=== PATIENT | male | born 1965 | race African-American/Black ===

== ENCOUNTER 2024-09-01 20:09 | Inpatient (IN) ==
--- NOTE | 2024-09-01 20:39 | Emergency Department Note ---
History of Present Illness General Chief complaint: Infection Stated complaint: ABSCESS ON CHIN X5 DAYS Time Seen by Provider: 09/01/24 20:18 History of Present Illness Maximum Pain Intensity: 10 This is a 58-year-old male that presents to the emergency department via EMS from [facility] for evaluation of facial infection to the chin region. The patient notes that for the past 5 days if not longer, he has been experiencing discomfort to the chin region favoring the left side. No known trauma or injury. He denies any fevers but does note chills. He notes it is painful now to swallow. The patient denies any known drug allergies. He does have a history of heroin abuse, currently completing detox and now at [facility] for rehab. The patient notes his tetanus vaccine is up-to-date. He states that the chin began to spontaneously drain today. Patient notes he is otherwise healthy and denies any pertinent past medical history, surgeries or allergies. Home Medications Medication Instructions Recorded Confirmed Type buprenorphine 8 mg-naloxone 2 mg 1 film buccal DAILY 09/02/24 09/02/24 History sublingual film (Suboxone) Allergies Allergy/AdvReac Type Severity Reaction Status Date / Time No Known Allergies Allergy Unverified 09/02/24 01:55 Past Med/Surg History Problem List (Updated 09/02/24 @ 01:55 by Gunner Russell PA-C) Cellulitis and abscess of face (Acute) Social History Smoking Status: Current every day smoker Tobacco Type: Cigarettes Preferred Language: Welsh Feels Safe at Home: Yes Review of Systems A total of 10 systems reviewed and were otherwise negative Physical Exam Vital Signs Vital Signs - 24 hr 09/01/24 20:20 09/01/24 22:25 09/01/24 23:00 Temperature 37.3 C 37.9 C H Temperature Source Oral Oral Pulse Rate 85 Pulse Rate [Finger] 89 90 Respiratory Rate 20 20 16 Respiratory Effort / Characteristics Non-Labored Spontaneous Respiratory Depth Normal Respiratory Pattern Regular Blood Pressure 175/75 H Blood Pressure [Right Arm] 170/79 H 158/75 H Blood Pressure Mean 108 Blood Pressure Mean [Right Arm] 109 102 Blood Pressure Position [Right Arm] Lying Pulse Oximetry 97 97 95 Oxygen Delivery Method Room Air Room Air Room Air Sepsis Recent Fever Within 48 Hours No Sepsis New/Unexplained Change in Mental Status No Sepsis Action Taken by Nursing No Action Required VITAL SIGNS - Vital signs and nursing notes were reviewed. Stable and afebrile. GENERAL -58-year-old male appearing his stated age who is in no acute distress. Communicates well with provider and answers questions appropriately. SKIN - Without rashes. No meningeal or petechial rash. HEAD - NC/AT. EYES - PERRL with EOMI bilaterally. Sclera anicteric. EARS - No deformities of external structures noted on gross examination bilaterally. No pain elicited with palpation of the tragus bilaterally. External auditory canals without discharge or otorrhea. Tympanic membranes pearly buchanan without retraction or bulging. No fluid or purulent material visualized behind the TM. Handle of malleus, umbo, cone of light, pars tensa/flaccid all easily visualized. NOSE - Midline and without cyanosis. No epistaxis or purulent drainage noted. Septum midline without deviation or septal hematoma noted. MOUTH/OROPHARYNX - Without perioral cyanosis. Buccal mucosa pink and moist and without leukoplakia. Tongue midline with equal elevation of palate bilaterally. No tonsillar hypertrophy, erythema, or exudates noted. Fair dentition noted. NECK - Neck with FROM. Overlying the anterior mandible/chin region favoring the left side there is a large amount of soft tissue edema, erythema with central opening and a small amount of purulence. Region is exquisitely tender to palpation. Tenderness tracks inferiorly into the anterior lateral neck on the left side. Edema also tracks to the inferior aspect of the left lower lip. Bilateral anterior cervical lymphadenopathy noted. No nuchal rigidity. LUNGS - CTA CARDIAC - RRR EXTREMITIES - No clubbing or peripheral cyanosis. +5/5 strength noted in UE/LE bilaterally. NEUROLOGIC - Cranial nerves II through XII grossly intact. PSYCH -alert, oriented and pleasant on exam Course Administered Medications Discontinued Medications Ampicillin Sodium/Sulbactam Sodium (Unasyn) 3,000 mg in 100 mls @ 200 mls/hr IV NOW STA Stop: 09/01/24 21:10 Last Infusion: 09/01/24 23:15 Dose: Infused Documented By: Admin: 09/01/24 22:26 Dose: 200 mls/hr Documented By: TALHA Vancomycin HCl 1,500 mg/ (Sodium Chloride) 530 mls @ 200 mls/hr IV NOW ONE Stop: 09/01/24 23:19 Last Infusion: 09/02/24 00:00 Dose: 200 mls/hr Documented By: Infusion: 09/01/24 23:30 Dose: 0 mls/hr Documented By: Admin: 09/01/24 23:23 Dose: 200 mls/hr Documented By: KALEB Sodium Chloride (Nss) 500 mls @ 125 mls/hr IV .Q4H CHANDRIKA Stop: 09/02/24 00:44 Last Admin: 09/01/24 22:27 Dose: 125 mls/hr Documented By: TALHA Ioversol (Optiray 320 100ml) 90 ml IV ONCE ONE Stop: 09/01/24 22:36 Last Admin: 09/01/24 22:35 Dose: 90 ml Documented By: LAWANDA Ketorolac Tromethamine (Ketorolac Tromethamine 15 Mg/Ml Vial) 10 mg IV NOW ONE Stop: 09/01/24 20:42 Last Admin: 09/01/24 22:29 Dose: 10 mg Documented By: TALHA Medical Decision Making Laboratory Data 09/01/24 22:10 09/01/24 22:10 Lab Results 09/01/24 09/01/24 Range/Units 22:10 22:24 WBC 10.21 (4.8-10.8) K/ul RBC 3.79 L (4.70-6.10) M/uL Hgb 11.7 L (14.0-18.0) g/dl POC Hgb 11.9 L (14.0-18.0) g/dl Hct 34.8 L (42.0-52.0) % POC Hct 35 L (42-52) % MCV 91.8 (80.0-100.0) fL MCH 30.9 (25.0-34.0) pg MCHC 33.6 (32.0-36.0) g/dL RDW Std Deviation 46.2 (36.4-46.3) fL RDW Coeff of Lucille 13.6 (11.5-14.5) % Plt Count 283 (130-400) K/uL MPV 9.6 (9.4-12.4) fL Immature Gran % (Auto) 0.4 % Neut % (Auto) 71.5 % Lymph % (Auto) 13.2 % [place] % (Auto) 10.4 % Eos % (Auto) 4.3 % Baso % (Auto) 0.2 % Neut # (Auto) 7.30 H (1.40-6.50) K/uL Lymph # (Auto) 1.35 (1.20-3.40) K/uL [place] # (Auto) 1.06 H (0.11-0.59) K/uL Eos # (Auto) 0.44 (0.00-0.50) K/uL Baso # (Auto) 0.02 (0.00-0.20) K/uL Immature Gran # (Auto) 0.04 (0.01-0.20) K/uL POC Sodium 138 (135-144) mmol/L Sodium 137 (136-145) mmol/L POC Potassium 3.7 (3.3-5.0) mmol/L Potassium 3.7 (3.5-5.1) mmol/L POC Chloride 100 L (101-112) mmol/L Chloride 101 (98-107) mmol/L Carbon Dioxide 31 (21-32) mmol/L POC Total CO2 29 (24-31) mmol/L Anion Gap 5 (3-11) POC Anion Gap 14.0 L (16-25) mmol/L POC BUN 11 (7-18) mg/dl BUN 12 (6-23) mg/dl Creatinine 0.74 (0.6-1.4) mg/dl POC Creatinine 0.8 (0.6-1.3) mg/dl Est Cr Clr Drug Dosing 113.7 ml/min eGFR 105.68 BUN/Creatinine Ratio 16.2 (10-20) Glucose 97 (70-99(Fasting)) mg/dl POC Glucose (other) 98 (70-99) mg/dl Lactate 0.8 (0.4-2.0) mmol/L Calcium 8.6 (8.6-10.3) mg/dl POC Ioniz Calcium Gianna 1.14 (1.12-1.32) mmol/l Total Bilirubin 0.4 (0.2-1.0) mg/dl AST 11 L (13-39) U/L ALT 7 (7-52) U/L Alkaline Phosphatase 45 (34-104) U/L Total Protein 6.7 (6.0-8.3) gm/dl Albumin 3.7 (3.4-5.0) gm/dl Globulin 3.0 (2.5-4.0) gm/dl Albumin/Globulin Ratio 1.2 (0.9-2) Procalcitonin < 0.02 (0-0.5) ng/ml Imaging Data Radiologist's Impression: Soft Tissue Neck CT 09/01/24 20:41 Exam(s): CT NECK With Contrast IV Amt: 90 ml optiray 320 EXAM: CT Neck With Intravenous Contrast CLINICAL HISTORY: Cellulitis TECHNIQUE: Axial computed tomography images of the neck with intravenous contrast. CTDI is 20 mGy and DLP is 534 mGy-cm. Automated exposure control was utilized for the study. A dose lowering technique was utilized adhering to the principles of ALARA. CONTRAST: Patient received 90 ml optiray 320 of IV contrast COMPARISON: No relevant prior studies available. FINDINGS: Oropharynx: Multiple periapical abscesses are noted of the residual maxillary teeth. No significant tonsillar enlargement. No peritonsillar abscess. Hypopharynx: Unremarkable. Larynx: Unremarkable. Normal epiglottis. Trachea: Unremarkable. Retropharyngeal space: Unremarkable. Submandibular/parotid glands: Unremarkable. Glands are normal in size. Thyroid: Unremarkable. No enlarged or calcified nodules. Bones/joints: There are degenerative changes of the spine. No acute fracture. Soft tissues: Marked subcutaneous edema of the left cheek and chin with a 14 x 19 x 15 mm abscess just deep to the skin of the left chin. Vasculature: Mild atherosclerosis. Lymph nodes: Unremarkable. No lymphadenopathy. Lung apices: Paraseptal emphysema. IMPRESSION: 1. Marked subcutaneous edema of the left cheek and chin with a 14 x 19 x 15 mm abscess just deep to the skin of the left chin. 2. Multiple periapical abscesses are noted of the residual maxillary teeth. 3. Paraseptal emphysema. Electronically signed by: Sandi Nieto MD 09/01/24 23:31 PM MDM Narrative Patient was seen and evaluated as above in room D03b. Review was performed of triage nursing notes and vital signs. I did review the accompanying documentation from [facility]. The patient does appear to have facial cellulitis with likely abscess. However, the patient does endorse chills and although initial temperature was normal, recheck was borderline febrile at 37.9. Patient has been on doxycycline it appears per review of the documentation. Lab reveal no leukocytosis. There is minor anemia with hemoglobin of 11.7. Metabolic panel is without emergent process. No evidence of kidney or liver failure. Lactate normal. Pro-Praful normal. A CT scan of the neck soft tissues was performed. Radiologist commented on marked subcutaneous edema of the left cheek and chin with a 14 x 19 x 15 mm abscess just deep to the skin of the left chin. There was also comment of multiple periapical abscesses of the residual maxillary teeth. Paraseptal emphysema also noted. No respiratory complaints at this time. With today's findings, I do believe that hospitalization is warranted. Will proceed with IV antibiotics. The patient may require I&D during his hospitalization but I do not believe that bedside I&D at this time would be in the patient's best interest, rather do recommend IV antibiotics and hospitalization and trending clinical course. Patient did ask for some food and did eat just after midnight, but did inform the patient that after finishing the food we will recommend n.p.o. status throughout the night depending on clinical course. I discussed case with the hospitalist service. Hospitalist will consult OMFS. I do not believe that the patient requires emergent bedside I&D at this time, rather believe he would benefit from IV antibiotics and further assessment later in the stay. Please refer to further documentation regarding his stay. Patient was amenable to admission but expressed concern that he will lose his spot at [facility]. I did work with our case management service and Rebecca did call to [facility] and was able to confirm after discharge from here patient will be able to return to [facility] to continue the program. Please see distributed generation project manager note in the EMR. GCS: 15 In the evaluation and treatment of this patient the following differential diagnoses were entertained: Luis Daniel's angina, dental infection, chin abscess, deep space infection, among others Impression & Plan Cellulitis and abscess of face Discharge Plan Visit Data Chief Complaint: Infection Stated Complaint: ABSCESS ON CHIN X5 DAYS ED Provider: Jean Sharma ED Midlevel Provider: Gunner Russell Discharge Problem: Cellulitis and abscess of face Patient Disposition: Admitted As Inpatient Condition: Good Discharge Instructions Interventions: ED Discharge Assessment Last Done: 09/02/24 01:22
[2024-09-01] MEDS ORDERED: VANCOMYCIN CONSULT ACTIVE PRN (20:41)
[2024-09-01] MEDS: AMPICILLIN/SULBACTAM SOD 3,000 MG/100 ML BAG IV STA (22:26)
[2024-09-01] MEDS: SODIUM CHLORIDE 0.9% 500 ML IV SCH (22:27)
[2024-09-01] MEDS: KETOROLAC TROMETHAMINE 15 MG/ML VIAL IV ONE (22:29)
[2024-09-01] MEDS: OPTIRAY 320 100ml IV ONE (22:35)
[2024-09-01 22:45] LABS: Basophils # (auto) 0.02 K/uL (0.00-0.20); Basophils % (auto) 0.2 %; Eosinophils # (auto) 0.44 K/uL (0.00-0.50); Eosinophils % (auto) 4.3 %; Hematocrit (blood only) 34.8 % (42.0-52.0); Hemoglobin 11.7 g/dl (14.0-18.0); Immature Granulocytes # (auto) 0.04 K/uL (0.01-0.20); Immature Granulocytes % (auto) 0.4 %; Lymphocytes # (auto) 1.35 K/uL (1.20-3.40); Lymphocytes % (auto) 13.2 %; Mean Corpuscular Hemoglobin 30.9 pg (25.0-34.0); Mean Corpuscular Hgb Conc 33.6 g/dL (32.0-36.0); Mean Corpuscular Volume 91.8 fL (80.0-100.0); Mean Platelet Volume 9.6 fL (9.4-12.4); Monocytes # (auto) 1.06 K/uL (0.11-0.59); Monocytes % (auto) 10.4 %; Neutrophils % (auto) 71.5 %; Platelet Count 283 K/uL (130-400); RDW Coefficient of Variation 13.6 % (11.5-14.5); RDW Standard Deviation 46.2 fL (36.4-46.3); Red Blood Count 3.79 M/uL (4.70-6.10); White Blood Count 10.21 K/ul (4.8-10.8)
[2024-09-01 22:54] LABS: Albumin Globulin Ratio 1.2 (0.9-2); Albumin Level 3.7 gm/dl (3.4-5.0); BUN Creatinine Ratio 16.2 (10-20); Bilirubin,Total 0.4 mg/dl (0.2-1.0); Calcium 8.6 mg/dl (8.6-10.3); Creatinine Clr Calc Pharmacy 113.7 ml/min; Potassium 3.7 mmol/L (3.5-5.1); Total Protein 6.7 gm/dl (6.0-8.3)
[2024-09-01] MEDS: VANCOMYCIN HCL 1,500 MG in SODIUM CHLORIDE 0.9% 500 ML IV ONE (23:23)
--- NOTE | 2024-09-01 23:32 | CT Scan Report ---
Exam(s): CT NECK With Contrast IV Amt: 90 ml optiray 320 EXAM: CT Neck With Intravenous Contrast CLINICAL HISTORY: Cellulitis TECHNIQUE: Axial computed tomography images of the neck with intravenous contrast. CTDI is 20 mGy and DLP is 534 mGy-cm. Automated exposure control was utilized for the study. A dose lowering technique was utilized adhering to the principles of ALARA. CONTRAST: Patient received 90 ml optiray 320 of IV contrast COMPARISON: No relevant prior studies available. FINDINGS: Oropharynx: Multiple periapical abscesses are noted of the residual maxillary teeth. No significant tonsillar enlargement. No peritonsillar abscess. Hypopharynx: Unremarkable. Larynx: Unremarkable. Normal epiglottis. Trachea: Unremarkable. Retropharyngeal space: Unremarkable. Submandibular/parotid glands: Unremarkable. Glands are normal in size. Thyroid: Unremarkable. No enlarged or calcified nodules. Bones/joints: There are degenerative changes of the spine. No acute fracture. Soft tissues: Marked subcutaneous edema of the left cheek and chin with a 14 x 19 x 15 mm abscess just deep to the skin of the left chin. Vasculature: Mild atherosclerosis. Lymph nodes: Unremarkable. No lymphadenopathy. Lung apices: Paraseptal emphysema. IMPRESSION: 1. Marked subcutaneous edema of the left cheek and chin with a 14 x 19 x 15 mm abscess just deep to the skin of the left chin. 2. Multiple periapical abscesses are noted of the residual maxillary teeth. 3. Paraseptal emphysema. Electronically signed by: Sandi Nieto MD 09/01/24 23:31 PM
[2024-09-01 23:55] LABS: iSTAT Creatinine 0.8 mg/dl (0.6-1.3); iSTAT Hemoglobin 11.9 g/dl (14.0-18.0); iSTAT Ionized Calcium 1.14 mmol/l (1.12-1.32); iSTAT Potassium 3.7 mmol/L (3.3-5.0)
[2024-09-02] MEDS ORDERED: ACETAMINOPHEN 325 MG TAB PO PRN (01:37)
[2024-09-02] MEDS: Patient's ALLERGY Info needs ENTERED STA (01:55)
[2024-09-02] MEDS: AMPICILLIN/SULBACTAM SOD 3,000 MG/100 ML BAG IV SCH (04:29)
[2024-09-02] MEDS: VANCOMYCIN HCL 1,500 MG in SODIUM CHLORIDE 0.9% 500 ML IV SCH (05:06)
[2024-09-02] MEDS: KETOROLAC TROMETHAMINE 15 MG/ML VIAL IV PRN (05:56)
--- NOTE | 2024-09-02 06:47 | History & Physical Report ---
Date of Service September 02, 2024 Assessment & Plan (1) Cellulitis and abscess of face: Plan: 58-year-old male seems no significant past medical history was sent in from [facility] for infection in the chin region. Patient went to [facility] rehab yesterday for cocaine abuse and was placed on Suboxone. Patient states have this infection For last 5 days. Chin is swollen. And small area of drainage seen. Has pain in that area. Patient is afebrile. Denies headache. Denies chest pain. Denies shortness of. No nausea. No abdominal pain. Hemodynamics are okay. Patient is somewhat noncooperative and annoyed with the questions. Cellulitis and abscess of face CT neck with IV contrast:. Marked subcutaneous edema of the left cheek and chin with a 14 x 19 x 15 mm abscess just deep to the skin of the left chin. 2. Multiple periapical abscesses are noted of the residual maxillary teeth. 3. Paraseptal emphysema ER started on Unasyn and Vanco which will continued N.p.o., IV fluids, IV Toradol as needed . Oral maxillofacial surgery consult Close monitor Cocaine abuse [facility] and was placed on Suboxone which will be continued. Discharged back to [facility] when stable DVT prophylaxis SCDs for now Disposition Medical floor Full code. History of Present Illness Chief Complaint: Chin abscess Primary Care Provider: Ari Henderson 58-year-old male seems no significant past medical history was sent in from [facility] for infection in the chin region. Patient went to [facility] rehab yesterday for cocaine abuse and was placed on Suboxone. Patient states having this infection for last 5 days. Chin is swollen. And small area of drainage seen. Has pain in that area. Patient is afebrile. Denies headache. Denies chest pain. Denies shortness of breath. No nausea. No abdominal pain. Hemodynamics are okay. Patient is somewhat noncooperative and annoyed with the questions. Past medical history and surgical history. Could not get complete history. Social history. Smoking. Using cocaine. Family history could not get family history Allergies Allergy/AdvReac Type Severity Reaction Status Date / Time No Known Allergies Allergy Unverified 09/02/24 01:55 Home Medications Medication Instructions Recorded Confirmed Type buprenorphine 8 mg-naloxone 2 mg 1 film buccal DAILY 09/02/24 09/02/24 History sublingual film (Suboxone) Past Med/Surg History Problem List (Updated 09/02/24 @ 01:55 by Gunner Russell PA-C) Cellulitis and abscess of face (Acute) Social History Smoking Status: Current every day smoker Tobacco Type: Cigarettes Cigarettes Per Day: 1/2 pack a day.; Hx Alcohol Use: No Hx Substance Use: Yes Last Used Substance: Days (ago) Last Used Substance Other:: 7 days ago. Preferred Language: Latvian Communication Ability: Effective Kettle Operator Required: No Beliefs That Will Affect Care: None Current Living Situation: Other Current Living Situation Comment: currently at [facility] Feels Safe at Home: Yes Assistive Devices: None Review of Systems Review of Systems: Other Non coperative Physical Exam Physical Exam: General- Not in distress Head- left side of chin is swollen and drainage seen Eyes- PERRL,. Neck- supple, no JVD. Lungs- clear to auscultation no wheezing or crackles Heart- regular rhythm; no murmur, no gallop. Abdomen- normal bowel sounds, soft, nontender, no distension Extremities- moves extremities Neuro- alert, oriented PERRL, no facial palsy; no dysarthria; moves extremities Results & Data Results & Data Vital Signs (Past 12 Hours) Vital Signs Temp Pulse Pulse Resp BP BP Pulse Ox 09/01/24 23:00 90 16 158/75 H 95 09/01/24 22:25 37.9 C H 89 20 170/79 H 97 09/01/24 20:20 37.3 C 85 20 175/75 H 97 O2 Del Method 09/01/24 23:00 Room Air 09/01/24 22:25 Room Air 09/01/24 20:20 Room Air Diagnostic Findings Laboratory Results WBC 10.21 K/ul (4.8-10.8) 09/01/24 22:10 RBC 3.79 M/uL (4.70-6.10) L 09/01/24 22:10 Hgb 11.7 g/dl (14.0-18.0) L 09/01/24 22:10 POC Hgb 11.9 g/dl (14.0-18.0) L 09/01/24 22:24 Hct 34.8 % (42.0-52.0) L 09/01/24 22:10 POC Hct 35 % (42-52) L 09/01/24 22:24 MCV 91.8 fL (80.0-100.0) 09/01/24 22:10 MCH 30.9 pg (25.0-34.0) 09/01/24 22:10 MCHC 33.6 g/dL (32.0-36.0) 09/01/24 22:10 RDW Std Deviation 46.2 fL (36.4-46.3) 09/01/24 22:10 RDW Coeff of Lucille 13.6 % (11.5-14.5) 09/01/24 22:10 Plt Count 283 K/uL (130-400) 09/01/24 22:10 MPV 9.6 fL (9.4-12.4) 09/01/24 22:10 Immature Gran % (Auto) 0.4 % 09/01/24 22:10 Neut % (Auto) 71.5 % 09/01/24 22:10 Lymph % (Auto) 13.2 % 09/01/24 22:10 [place] % (Auto) 10.4 % 09/01/24 22:10 Eos % (Auto) 4.3 % 09/01/24 22:10 Baso % (Auto) 0.2 % 09/01/24 22:10 Neut # (Auto) 7.30 K/uL (1.40-6.50) H 09/01/24 22:10 Lymph # (Auto) 1.35 K/uL (1.20-3.40) 09/01/24 22:10 [place] # (Auto) 1.06 K/uL (0.11-0.59) H 09/01/24 22:10 Eos # (Auto) 0.44 K/uL (0.00-0.50) 09/01/24 22:10 Baso # (Auto) 0.02 K/uL (0.00-0.20) 09/01/24 22:10 Immature Gran # (Auto) 0.04 K/uL (0.01-0.20) 09/01/24 22:10 POC Sodium 138 mmol/L (135-144) 09/01/24 22:24 Sodium 137 mmol/L (136-145) 09/01/24 22:10 POC Potassium 3.7 mmol/L (3.3-5.0) 09/01/24 22:24 Potassium 3.7 mmol/L (3.5-5.1) 09/01/24 22:10 POC Chloride 100 mmol/L (101-112) L 09/01/24 22:24 Chloride 101 mmol/L (98-107) 09/01/24 22:10 Carbon Dioxide 31 mmol/L (21-32) 09/01/24 22:10 POC Total CO2 29 mmol/L (24-31) 09/01/24 22:24 Anion Gap 5 (3-11) 09/01/24 22:10 POC Anion Gap 14.0 mmol/L (16-25) L 09/01/24 22:24 POC BUN 11 mg/dl (7-18) 09/01/24 22:24 BUN 12 mg/dl (6-23) 09/01/24 22:10 Creatinine 0.74 mg/dl (0.6-1.4) 09/01/24 22:10 POC Creatinine 0.8 mg/dl (0.6-1.3) 09/01/24 22:24 Est Cr Clr Drug Dosing 113.7 ml/min 09/01/24 22:10 eGFR 105.68 09/01/24 22:10 BUN/Creatinine Ratio 16.2 (10-20) 09/01/24 22:10 Glucose 97 mg/dl (70-99(Fasting)) 09/01/24 22:10 POC Glucose (other) 98 mg/dl (70-99) 09/01/24 22:24 Lactate 0.8 mmol/L (0.4-2.0) 09/01/24 22:10 Calcium 8.6 mg/dl (8.6-10.3) 09/01/24 22:10 POC Ioniz Calcium Gianna 1.14 mmol/l (1.12-1.32) 09/01/24 22:24 Total Bilirubin 0.4 mg/dl (0.2-1.0) 09/01/24 22:10 AST 11 U/L (13-39) L 09/01/24 22:10 ALT 7 U/L (7-52) 09/01/24 22:10 Alkaline Phosphatase 45 U/L (34-104) 09/01/24 22:10 Total Protein 6.7 gm/dl (6.0-8.3) 09/01/24 22:10 Albumin 3.7 gm/dl (3.4-5.0) 09/01/24 22:10 Globulin 3.0 gm/dl (2.5-4.0) 09/01/24 22:10 Albumin/Globulin Ratio 1.2 (0.9-2) 09/01/24 22:10 Procalcitonin < 0.02 ng/ml (0-0.5) 09/01/24 22:10 Impressions Soft Tissue Neck CT 09/01/24 20:41 Exam(s): CT NECK With Contrast IV Amt: 90 ml optiray 320 EXAM: CT Neck With Intravenous Contrast CLINICAL HISTORY: Cellulitis TECHNIQUE: Axial computed tomography images of the neck with intravenous contrast. CTDI is 20 mGy and DLP is 534 mGy-cm. Automated exposure control was utilized for the study. A dose lowering technique was utilized adhering to the principles of ALARA. CONTRAST: Patient received 90 ml optiray 320 of IV contrast COMPARISON: No relevant prior studies available. FINDINGS: Oropharynx: Multiple periapical abscesses are noted of the residual maxillary teeth. No significant tonsillar enlargement. No peritonsillar abscess. Hypopharynx: Unremarkable. Larynx: Unremarkable. Normal epiglottis. Trachea: Unremarkable. Retropharyngeal space: Unremarkable. Submandibular/parotid glands: Unremarkable. Glands are normal in size. Thyroid: Unremarkable. No enlarged or calcified nodules. Bones/joints: There are degenerative changes of the spine. No acute fracture. Soft tissues: Marked subcutaneous edema of the left cheek and chin with a 14 x 19 x 15 mm abscess just deep to the skin of the left chin. Vasculature: Mild atherosclerosis. Lymph nodes: Unremarkable. No lymphadenopathy. Lung apices: Paraseptal emphysema. IMPRESSION: 1. Marked subcutaneous edema of the left cheek and chin with a 14 x 19 x 15 mm abscess just deep to the skin of the left chin. 2. Multiple periapical abscesses are noted of the residual maxillary teeth. 3. Paraseptal emphysema. Electronically signed by: Sandi Nieto MD 09/01/24 23:31 PM Code Status & VTE Plan VTE Prophylaxis Plan VTE Prophylaxis will be ordered: Yes
[2024-09-02] MEDS: BUPRENORPHINE/NALOXONE 8/2 MG TAB SL SCH (08:03)
--- NOTE | 2024-09-02 09:20 | Pharmacy Report ---
Pharmacy PK ABX Note - Date of Service September 02, 2024 - Assessment and Plan Assessment 58 year old M receiving vancomycin for treatment of facial cellulitis, facial and blood cultures are pending. Plan Vancomycin * Loading dose: 1500 mg IV x 1 * Maintenance dose: 1500 mg IV every 12 hours * Regimen is predicted to achieve target AUC/JOSE G of 400-600 mg/L.hr * Trough Random level ordered for: 09/03/24 Pharmacy will continue to follow and will adjust dose/frequency as necessary. Thank you. Pharmacy has transitioned to AUC monitoring for vancomycin. AUC/JOSE G is the preferred PK/PD target and is associated with decreased risk of nephrotoxicity c ompared to traditional trough targets.
--- NOTE | 2024-09-02 10:02 | Oral/Maxillofacial Consult ---
Date of Consultation September 02, 2024 I was asked to see Mr Yara regarding a left chin infection which developed of unknown origin. He feels and I agree that this stated as a ingrown hair of the left chin. He has no lower teeth except for an infected retained lower left molar roots. I doubt that this infection was caused by this retained tooth root but once I examine him I will know better. The bone does not show any evidence of osteomyelitics to account for the infection. It is now possible that this could be the result of an infected dermoid cyst or small pimple. Nevertheless with the amount of fluid collection an I&D will most likely be needed. I will also remove the infected lower left infected roots to prevent ongoing jaw pain and swelling # 18 area I evaluated Abdulaziz this afternoon and decided that an I&D tomorrow is indicated to drain and open up the large infected lesion. IV antibiotics presently, heat compress and I&D in AM is his best option. He was not happy with my suggestions but after he settled down he understands the need for the I&D. I told him with out the drainage the infection WILL get worse. He agreed to the IV therapy and I&D tomorrow Acute Cellulitis and abscess of face left chin area secondary to infected ingrown hair Plan I&D tomorrow NPO midnight 58-year-old male seems no significant past medical history was sent in from [facility] for infection in the chin region. Patient went to [facility] rehab yesterday for cocaine abuse and was placed on Suboxone. Patient states have this infection For last 5 days. Chin is swollen. And small area of drainage seen. Has pain in that area. Patient is afebrile. Denies headache. Denies chest pain. Denies shortness of. No nausea. No abdominal pain. Hemodynamics are okay. Patient is somewhat noncooperative and annoyed with the questions. Cocaine abuse [facility] and was placed on Suboxone which will be continued. Discharged back to [facility] when stable EXAM: CT Neck With Intravenous Contrast CLINICAL HISTORY: Cellulitis FINDINGS: Oropharynx: Multiple periapical abscesses are noted of the residual maxillary teeth. No significant tonsillar enlargement. No peritonsillar abscess. Hypopharynx: Unremarkable. Larynx: Unremarkable. Normal epiglottis. Trachea: Unremarkable. Retropharyngeal space: Unremarkable. Submandibular/parotid glands: Unremarkable. Glands are normal in size. Thyroid: Unremarkable. No enlarged or calcified nodules. Bones/joints: There are degenerative changes of the spine. No acute fracture. Soft tissues: Marked subcutaneous edema of the left cheek and chin with a 14 x 19 x 15 mm abscess just deep to the skin of the left chin. Vasculature: Mild atherosclerosis. Lymph nodes: Unremarkable. No lymphadenopathy. Lung apices: Paraseptal emphysema. IMPRESSION: 1. Marked subcutaneous edema of the left cheek and chin with a 14 x 19 x 15 mm abscess just deep to the skin of the left chin. 2. Multiple periapical abscesses are noted of the residual maxillary teeth. 3. Paraseptal emphysema. Assessment & Plan (1) Cellulitis and abscess of face: (2) Abscess of chin: (3) Ingrown hair: (4) Infected tooth: History of Present Illness Attending Physician: Jonah Delvalle MD Allergies Allergy/AdvReac Type Severity Reaction Status Date / Time No Known Allergies Allergy Unverified 09/02/24 01:55 Home Medications Medication Instructions Recorded Confirmed Type buprenorphine 8 mg-naloxone 2 mg 1 film buccal DAILY 09/02/24 09/02/24 History sublingual film (Suboxone) Patient History Social History Smoking Status: Current every day smoker Tobacco Type: Cigarettes Cigarettes Per Day: 1/2 pack a day.; Hx Alcohol Use: No Hx Substance Use: Yes Last Used Substance: Days (ago) Last Used Substance Ot her:: 7 days ago. Preferred Language: Danish Communication Ability: Effective Technical Support Agent Required: No Beliefs That Will Affect Care: None Current Living Situation: Other Current Living Situation Comment: currently at [facility] D&A Feels Safe at Home: Yes Assistive Devices: None Results & Data Vital Signs (Past 12 Hours) Vital Signs Temp Pulse Resp BP Pulse Ox O2 Del Method 09/02/24 07:54 36.8 C 76 16 158/80 H 98 Room Air 09/02/24 01:49 147/70 H 09/02/24 01:38 37.1 C 88 16 179/64 H 97 Room Air 09/02/24 00:56 91 H 16 164/80 H 96 Room Air 09/01/24 23:00 90 16 158/75 H 95 Room Air 09/01/24 22:25 37.9 C H 89 20 170/79 H 97 Room Air PG Care Time/CCT Total # of Minutes Spent Total Time Spent with Patient: Total time spent is greater than 50% in coordination of care (as documented) at patient's floor/unit and/or counseling patient: Coding Level of Care Code 25499 OFFICE CONSULT LVL Diagnoses Cellulitis and abscess of face L03.211; L02.01 Abscess of chin L02.01 Ingrown hair L73.1 Infected tooth K04.7
--- NOTE | 2024-09-02 15:03 | Communication Note ---
Date of Service: September 02, 2024 Patient seen and examined at bedside. He was sitting on a chair outside the room; was anxious. I asked him to go inside the room which he complied with. He was very upset that he had not had surgery till now. He denies any pain or discomfort On physical examination Constitutional: Awake, alert oriented x 3. Appeared anxious HEENTleft side of the chin with swelling, draining with pus. Respiratory: Bilateral vesicular breath sound. Cardiovascular: RRR, no murmur, no edema Vessels: no JVD or carotid bruit Chest: normal inspection of chest Abdomen: normal bowel sounds, soft, nontender, no hepatosplenomegaly Musculoskeletal: no cyanosis or clubbing, extremities motor strength 5/5 Skin: no rashes, warm and dry normal turgor Neurologic: PERRL, EOMI, accommodation nl, no face palsy, no dysarthria CN's II- XI intact bilaterally and moves all extremities Assessment/plan (1) Cellulitis and abscess of face: 58-year-old male seems no significant past medical history was sent in from [facility] for infection in the chin region. Patient originally from [facility] as per him Cellulitis and abscess of face CT neck with IV contrast:. Marked subcutaneous edema of the left cheek and chin with a 14 x 19 x 15 mm abscess just deep to the skin of the left chin. 2. Multiple periapical abscesses are noted of the residual maxillary teeth. 3. Paraseptal emphysema Wound Gram stain is showing few WBC and few gram-positive cocci Continue on current antibiotics with vancomycin and Unasyn Oral surgery on board for possible I&D. Follow-up on wound culture. Please note the above document was generated using voice recognition software. It may contain grammatical, syntax or spelling errors. Any formal questions or concerns about the content, text or information contained within the body of this dictation should be directly addressed to the provider for clarification
[2024-09-03] MEDS: VANCOMYCIN LEVEL ONE (05:55)
[2024-09-03 06:00] LABS: Basophils # (auto) 0.01 K/uL (0.00-0.20); Basophils % (auto) 0.2 %; Eosinophils # (auto) 0.43 K/uL (0.00-0.50); Eosinophils % (auto) 7.1 %; Hematocrit (blood only) 33.4 % (42.0-52.0); Hemoglobin 11.4 g/dl (14.0-18.0); Immature Granulocytes # (auto) 0.02 K/uL (0.01-0.20); Immature Granulocytes % (auto) 0.3 %; Lymphocytes # (auto) 1.45 K/uL (1.20-3.40); Lymphocytes % (auto) 23.9 %; Mean Corpuscular Hemoglobin 30.9 pg (25.0-34.0); Mean Corpuscular Hgb Conc 34.1 g/dL (32.0-36.0); Mean Corpuscular Volume 90.5 fL (80.0-100.0); Mean Platelet Volume 8.9 fL (9.4-12.4); Monocytes # (auto) 0.73 K/uL (0.11-0.59); Neutrophils # (auto) 3.42 K/uL (1.40-6.50); Neutrophils % (auto) 56.5 %; Platelet Count 269 K/uL (130-400); RDW Coefficient of Variation 13.4 % (11.5-14.5); RDW Standard Deviation 44.5 fL (36.4-46.3); Red Blood Count 3.69 M/uL (4.70-6.10); White Blood Count 6.06 K/ul (4.8-10.8)
[2024-09-03] MEDS ORDERED: fentaNYL citrate PF 100 MCG/2 ML VIAL ONE (07:13)
[2024-09-03] MEDS ORDERED: MIDAZOLAM HCL 1 MG/ML 2ML VIAL ONE (07:13)
[2024-09-03] MEDS ORDERED: PROPOFOL IV EMULSION 10 MG/ML 20 ML VIAL IV ONE (07:13)
[2024-09-03] MEDS ORDERED: ROCURONIUM BROMIDE 10 MG/ML 5 ML VIAL IV ONE (07:13)
[2024-09-03] MEDS ORDERED: NEOSTIGMINE METHYLSULFATE 1 MG/ML 10ML VIAL ONE (07:13)
[2024-09-03] MEDS ORDERED: GLYCOPYRROLATE 0.2 MG/ML VIAL ONE (07:13)
[2024-09-03] MEDS ORDERED: ONDANSETRON INJ 2 MG/ML 2 ML VIAL ONE (07:13)
[2024-09-03] MEDS ORDERED: LIDOCAINE 2% 2 ML VIAL/AMP(20MG/ML) INFIL ONE (07:13)
[2024-09-03] MEDS ORDERED: DEXAMETHASONE SOD INJ 4 MG/ML VIAL ONE (07:13)
[2024-09-03] MEDS ORDERED: Nursing to Pharmacy Communication SCH ×2 (09:15→14:15)
[2024-09-03] MEDS: LR 15ML/HR IV SCH (09:23)
--- NOTE | 2024-09-03 09:40 | Hospitalist Progress Note ---
Date of Service September 03, 2024 Assessment & Plan (1) Cellulitis and abscess of face: Plan: 58-year-old male seems no significant past medical history was sent in from [facility] for infection in the chin region. Patient went to [facility] rehab yesterday for cocaine abuse and was placed on Suboxone. Patient states have this infection For last 5 days. Chin is swollen. And small area of drainage seen. Has pain in that area. Patient is afebrile. Denies headache. Denies chest pain. Denies shortness of. No nausea. No abdominal pain. Hemodynamics are okay. Patient is somewhat noncooperative and annoyed with the questions. Cellulitis and abscess of face CT neck with IV contrast:. Marked subcutaneous edema of the left cheek and chin with a 14 x 19 x 15 mm abscess just deep to the skin of the left chin. 2. Multiple periapical abscesses are noted of the residual maxillary teeth. 3. Paraseptal emphysema ER started on Unasyn and Vanco which will continued N.p.o., IV fluids, IV Toradol as needed . Oral maxillofacial surgery consult Close monitor Cocaine abuse Ad[facility] and was placed on Suboxone which will be continued. Discharged back to [facility] when stable DVT prophylaxis SCDs for now Disposition Medical floor Full code. Admission and Anticipated Discharge Date Admission Date: September 02, 2024 Physical Exam Physical Exam: General- Not in distress Head- left side of chin is swollen and drainage seen Eyes- PERRL,. Neck- supple, no JVD. Lungs- clear to auscultation no wheezing or crackles Heart- regular rhythm; no murmur, no gallop. Abdomen- normal bowel sounds, soft, nontender, no distension Extremities- moves extremities Neuro- alert, oriented PERRL, no facial palsy; no dysarthria; moves extremities Results & Data Results & Data Vital Signs (Past 12 Hours) Vital Signs Temp Pulse Resp BP Pulse Ox O2 Del Method 09/03/24 09:14 36.9 C 62 20 141/68 H 100 Room Air 09/03/24 08:02 36.7 C 61 16 151/83 H 98 Room Air
--- NOTE | 2024-09-03 09:43 | Anesthesiology Consultation ---
Date of Service September 03, 2024 Assessment & Plan (1) Encounter for pre-operative examination: Chart Review Chart Review: Acceptable Risk for Surgery History Surgery Operation Date: 09/03/24 10:00 Proposed Procedures p Incision and Drainage Left Chin - Haris Robison, DMD s Extraction Tooth #18 - Haris Robison DMD Height/Weight Height: 5 ft 10 in Weight: 78.3 kg Allergies Allergy/AdvReac Type Severity Reaction Status Date / Time No Known Allergies Allergy Unverified 09/02/24 01:55 Medications Home Medications Medication Instructions Recorded Confirmed Last Taken buprenorphine 8 mg-naloxone 2 mg 1 film buccal DAILY 09/02/24 09/02/24 Unknown sublingual film (Suboxone) Active Medications Generic Name Dose Route Start Last Admin Trade Name Freq PRN Reason Stop Dose Admin Buprenorphine/Naloxone 1 tab 09/02/24 09:00 09/03/24 08:56 Buprenorphine/Naloxone 8/2 Mg Tab SL 10/02/24 08:59 1 tab DAILY CHANDRIKA Administration Ampicillin Sodium/Sulbactam Sodium 3,000 mg in 100 mls @ 200 mls/hr 09/02/24 04:00 09/03/24 04:05 Unasyn IV 09/09/24 03:59 Infused Q6H CHANDRIKA Infusion Vancomycin HCl 1,500 mg/ 530 mls @ 200 mls/hr 09/02/24 06:00 09/03/24 08:53 Sodium Chloride IV 09/09/24 05:59 Infused Q12H CHANDRIKA Infusion Lactated Ringer's 1,000 mls @ 15 mls/hr 09/03/24 10:00 09/03/24 09:23 Lr IV 09/04/24 09:59 15 mls/hr .Q24H CHANDRIKA Administration Ketorolac Tromethamine 15 mg 09/02/24 01:37 09/03/24 03:26 Ketorolac Tromethamine 15 Mg/Ml Vial IV 09/07/24 01:36 15 mg Q6H PRN Administration Severe Pain (Scale 7, 8, 9,10) NPO Date Last Intake of Fluids: 09/02/24 Time Last Intake of Fluids: 23:55 Date Last Intake of Solids: 09/02/24 Time Last Intake of Solids: 23:55 Past Medical History Medical History (Updated 09/03/24 @ 09:43 by Earl Alexander MD) Smoker Cocaine abuse Past Surgical History Surgical History (Updated 09/03/24 @ 09:42 by Earl Alexander MD) History of hip surgery Social History Smoking Status: Current every day smoker Smoking cigarettes per day: 1/2 pack a day. Hx Alcohol Use: No Hx Substance Use: Yes substance use type: heroin Last Used Substance: Days (ago) Last Used Substance Other:: 7 days ago. Physical Exam Vital Signs Last Vital Signs Temp 36.9 C 09/03/24 09:14 Pulse 62 09/03/24 09:14 Resp 20 09/03/24 09:14 BP 141/68 H 09/03/24 09:14 Pulse Ox 100 09/03/24 09:14 O2 Del Method Room Air 09/03/24 09:14 Testing Laboratory Results 09/03/24 05:34 09/01/24 22:50 Gram Stain - Final Face Aerobic and Anaerobic Culture - Preliminary Staphylococcus aureus 09/01/24 22:10 Aerobic Blood Culture - Preliminary Blood No growth in Aerobic bottle after 24 hours. Anaerobic Blood Culture - Preliminary No growth in Anaerobic bottle after 24 hours. Laboratory Tests 09/01/24 22:10 Potassium 3.7 Creatinine 0.74
[2024-09-03] MEDS ORDERED: ONDANSETRON INJ 2 MG/ML 2 ML VIAL IV PRN (09:45)
[2024-09-03] MEDS ORDERED: ATROPINE SULFATE 0.1 MG/ML 10ML SYR IV PRN (09:45)
--- NOTE | 2024-09-03 10:17 | History & Physical Bridge Note ---
Date of Service September 03, 2024 History & Physical Bridge Note I have examined the patient, reviewed the History & Physical and in the interval since the performance of the History & Physical I have noted the following changes of clinical significance: no changes noted. OK for the planned I&D
[2024-09-03] MEDS: CHLORHEXIDINE GLUCONATE 0.12% 480 ML MT ONE (11:01)
[2024-09-03] MEDS ORDERED: SUGAMMADEX SODIUM 200 MG/2 ML VIAL IV ONE (11:06)
[2024-09-03] MEDS: BUPIVACAINE/EPINEPHRINE 0.5% 1:200,000 1.8 ML CARP ONE (11:10)
[2024-09-03 11:15] LABS: Calcium 8.5 mg/dl (8.6-10.3); Magnesium 1.9 mg/dl (1.7-2.4)
[2024-09-03 11:20] LABS: BUN Creatinine Ratio 16.7 (10-20); Creatinine Clr Calc Pharmacy 140.3 ml/min
--- NOTE | 2024-09-03 11:28 | Post Operative Brief Note ---
PG Immediate Post Op with CF Date of Surgery September 03, 2024 Pre & Post Diagnosis Operation Date: 09/03/24 10:00 Pre-Op Diagnosis: Left chin abscess Post-Op Diagnosis: Left chin abscess I identified the patient and participated in the time-out.: Yes Procedure Operation Date: 09/03/24 10:00 Actual Procedures p Incision and Drainage Left Chin(Left) - Haris Robison DMD s Extraction Tooth #18 - Haris Robison DMD Surgeon Haris Robison DMD Mold Yard Supervisor none Estimated Blood Loss 5 Findings Consistent with Post-Op Diagnosis infection, abscess,necrotic tissue, infected # 18 Specimens Specimen Description: culture#1 abscess left chin A. infected tissue and muscle left chin Anesthesia Type General Complications significant necrotic tissue and muscle which required debridement Disposition Accompanied Patient To Recovery: Yes
[2024-09-03] MEDS: fentaNYL citrate PF 100 MCG/2 ML VIAL IV PRN (11:30)
[2024-09-03] MEDS: KETOROLAC 30 MG/ML VIAL IV PRN (11:30)
[2024-09-03 12:18] VITALS: RESP 16
--- NOTE | 2024-09-03 12:25 | Pharmacy Report ---
Pharmacy PK ABX Note - Date of Service September 03, 2024 - Assessment and Plan Assessment 09/03: * Reviewed vancomycin level, predicting therapeutic AUC/JOSE G with low probability. Surface facial culture now growing S. Aureus, final identification and sensitivities pending. I&D and infected tooth removal today, OR cultures pending. Blood cultures NG x24 hours. Will adjust dosing regimen to [employer] preferred with a 92% probability of attaining a therapeutic level due to severity of infection. 09/02: 58 year old M receiving vancomycin for treatment of facial cellulitis, facial and blood cultures are pending. Plan Vancomycin * Loading dose: 1500 mg IV x 1 * Current maintenance dose: 1500 mg IV every 12 hours * Increase to vancomycin 1250mg IV Q8H * Regimen is predicted to achieve target AUC/JOSE G of 400-600 mg/L.hr * Trough level ordered for: 09/04/24 @ 0130 Pharmacy will continue to follow and will adjust dose/frequency as necessary. Thank you. Pharmacy has transitioned to AUC monitoring for vancomycin. AUC/JOSE G is the preferred PK/PD target and is associated with decreased risk of nephrotoxicity compared to traditional trough targets.
[2024-09-03 12:46] VITALS: TEMP 97.2
[2024-09-03] MEDS ORDERED: VANCOMYCIN HCL 1,250 MG in SODIUM CHLORIDE 0.9% 250 ML IV SCH (14:00)
[2024-09-03 14:03] VITALS: BP 161/63; PULSE 74; O2SAT 96
--- NOTE | 2024-09-03 14:31 | Discharge Summary ---
Date of Service September 03, 2024 Admission HPI Per Admitting Provider 58-year-old male seems no significant past medical history was sent in from [facility] for infection in the chin region. Patient went to [facility] rehab yesterday for cocaine abuse and was placed on Suboxone. Patient states having this infection for last 5 days. Chin is swollen. And small area of drainage seen. Has pain in that area. Patient is afebrile. Denies headache. Denies chest pain. Denies shortness of breath. No nausea. No abdominal pain. Hemodynamics are okay. Patient is somewhat noncooperative and annoyed with the questions. Past medical history and surgical history. Could not get complete history. Social history. Smoking. Using cocaine. Family history could not get family history Admission Exam Per Admitting Provider General- Not in distress Head- left side of chin is swollen and drainage seen Eyes- PERRL,. Neck- supple, no JVD. Lungs- clear to auscultation no wheezing or crackles Heart- regular rhythm; no murmur, no gallop. Abdomen- normal bowel sounds, soft, nontender, no distension Extremities- moves extremities Neuro- alert, oriented PERRL, no facial palsy; no dysarthria; moves extremities Principal Diagnosis Left skin abscess status post I&D Discharge Exam Constitutional: Alert oriented x 3; not in distress Head; dressing in place over the surgical site; no overlying soakage. Respiratory: Bilateral vesicular breath sound. Cardiovascular: RRR, no murmur, no edema Vessels: no JVD or carotid bruit Chest: normal inspection of chest Abdomen: normal bowel sounds, soft, nontender, no hepatosplenomegaly Musculoskeletal: no cyanosis or clubbing, extremities motor strength 5/5 Skin: no rashes, warm and dry normal turgor Neurologic: PERRL, EOMI, accommodation nl, no face palsy, no dysarthria CN's II- XI intact bilaterally and moves all extremities Psychiatric: A+Ox3, euthymic affect Discharge Data Allergies Allergy/AdvReac Type Severity Reaction Status Date / Time No Known Allergies Allergy Unverified 09/02/24 01:55 Consultations 09/01/24 23:56 ED Decision to Admit Stat 09/02/24 08:00 Consult Oromaxillofacial Surgery Routine Procedures Performed Operation Date: 09/03/24 10:00 Actual Procedures p Incision and Drainage Left Chin(Left) - Haris Robison DMD s Extraction Tooth #18 - Haris Robison DMD Ordered Studies 09/01/24 20:41 CT soft tissue neck w con Stat Hospital Course (1) Cellulitis and abscess of face: Plan 58-year-old male seems no significant past medical history was sent in from [facility] for infection in the chin region. CT head and neck on admission showed 14 x 19 x 15 mm abscess just deep to the skin of the left chin. Patient was admitted to medical floor; started on IV antibiotic and vancomycin. Oral surgery was consulted for comanagement and patient underwent I&D for abscess. Preliminary wound culture showed Staph aureus. Patient was discharged on Augmentin and doxycycline to be taken for next 7 days. Instruction was also placed for him to follow-up with oral surgeon after discharge. Please note the above document was generated using voice recognition software. It may contain grammatical, syntax or spelling errors. Any formal questions or concerns about the content, text or information contained within the body of this dictation should be directly addressed to the provider for clarification Total Time Total Time Spent Total Time Spent (In Minutes): 45 Total Time Includes: Examination of the Patient, Discharge Planning, Medication Reconciliation, Communication With Other Providers and Other Discharge Plan Discharge Items Patient Disposition: Drug & Alcohol Rehab Reason For Visit: LEFT CHIN ABSCESS Discharge Diagnosis: Left chin abscess status post I&D Condition on Discharge: Good Activity: Resume your previous activity Non-emergency contact: Primary Care Provider Call non-emergency contact if: you have any medication questions and your symptoms worsen Follow-up/Referrals: Ari Henderson [Primary Care Provider] - Diet: Regular Addtl Attending Provider Instructions: You were admitted to the hospital due to change in abscess/infection. You underwent I&D by Dr. Robison during the hospitalization. You are prescribed Augmentin and doxycycline to be taken twice daily for 7 days. Please follow-up with Dr. Robison in next 7 to 10 days. Please call [phone] to make appointment. Pending Studies at Discharge: No Stand-Alone Forms: My [facility] Skilled Items Patient informed of condition?: Yes DNR: No Discharge Level of Care: Other Communicable Disease: No Discharge Prognosis: Stable Lines: None Urinary Catheter: No Medications and DC Order Prescriptions: New acetaminophen 325 mg Tablet 650 mg PO Q4H PRN (Reason: fever or pain) Qty: 28 0RF amoxicillin-pot clavulanate 875-125 mg tablet 1 tab PO BID 7 Days Qty: 14 0RF doxycycline hyclate 100 mg capsule 100 mg PO BID 7 Days Qty: 14 0RF Continued buprenorphine-naloxone [Suboxone] 8-2 mg Film 1 film BUCCAL DAILY Discharge Orders: Discharge Order (Routine); Ordered 09/03/24 Ordered By: Jonah Delvalle Admission Data Admit Date/Time: 09/02/24 00:35 Attending Provider: Jonah Delvalle Admit Provider: Reggie Michel Primary Care Provider: Ari Henderson Other Providers: Reggie Michel; Haris Robison
[2024-09-04] MEDS ORDERED: VANCOMYCIN LEVEL ONE (05:00)
--- NOTE | 2024-09-04 12:13 | Anesthesiology Progress Note ---
Date of Service September 04, 2024 Anesthesia Post Procedure Vital Signs Vital Signs: Temp Pulse Pulse Resp BP Pulse Ox O2 Del Method 09/03/24 14:30 36.2 C L 74 16 161/63 H 96 09/03/24 13:45 74 16 161/63 H 96 Room Air 09/03/24 12:45 36.2 C L 72 16 136/76 97 Room Air 09/03/24 12:15 81 16 150/73 H 100 Room Air Pain Intensity Left Jaw: Pain Intensity: 4 Transfer of Care Handoff Completed per policy Notes Mental Status: alert / awake / arousable Patient Amnestic to Procedure: Yes Nausea / Vomiting: adequately controlled Pain: adequately controlled Airway Patency, RR, SpO2: stable & adequate BP & HR: stable & adequate Hydration State: stable & adequate Anesthetic Complications: no major complications apparent
--- NOTE | 2024-09-07 13:55 | Operative Report ---
PG Post Operative Report Pre & Post Diagnosis Operation Date: 09/03/24 10:00 Pre-Op Diagnosis: Left chin abscess Post-Op Diagnosis: Left chin abscess I identified the patient and participated in the time-out.: Yes Procedure Operation Date: 09/03/24 10:00 Actual Procedures p Incision and Drainage Left Chin(Left) - Haris Robison DMD s Extraction Tooth #18 - Haris Robison DMD Surgeon Haris Robison DMD Teaching Artist none Estimated Blood Loss 5 Findings Consistent with Post-Op Diagnosis Infected skin abscess suspect MRSA lateral left chin Specimens skin and necrotic tissue Drains none Anesthesia Type General Complications devital skin and muscle requiring excision of devital necrotic tissue with primary intermediate closure of resulting defect Disposition Accompanied Patient To Recovery: Yes Indications acute infection with necrotic skin and muscle chin Description of Procedure Diagnosis 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 Cellulitis and abscess of face L03.211; L02.01 Abscess of chin L02.01 Ingrown hair L73.1 Infected tooth K04.7 Procedures Incision and drainage of left chin abscess CPT 54725 Debridement of deep muscle and skin CPT 14057 Intermediate closure of 4x3 cm wound defect CPT 92180 Simple extraction of # 18 retained roots [id number] Actual Procedures p Incision and Drainage left chin Abscess; Removal of Tooth #18 (Not Applicable) - Haris Robison DMD Excision and debridement of necrotic skin and muscle Intermediate close of 4 cm resulting skin defect with local tissue rearrangement Once cleared for surgery general anesthesia was achieved, the eyes were protected by the anesthesia dept criteria. A time out was take for patient ID, antibiotics, equipment and position verification once all agreed the procedure began. Local anesthesia using Marcaine with a vasoconstrictor ( 1.8 ml per site) given into left chin area (in healthy soft tissue only) and in the left inferior alveolar nerve left side. A throat pack was placed after the oral cavity was irrigated with saline. Once a surgical level of anesthesia was obtained and the local anesthesia was given time for the blocks the surgery was started. I turned my attention to the infection which was located in the left chin and submental area. Incision and Drainage CPT 1006 Using a 15 blade an incision was made below the fluctuant left chin swelling. Once the incision was made a lot of pus extruded from the site. This drainage was cultured for anaerobic and aerobic bacteria. A curved hemostat was carefully placed into the infected space to open up all the pockets and drain the submental space. Some further drainage was now allowed to escape. palpated the chin and submental area and no further drainage was expressed. The area was irrigated with at least 100 ml of NS solution. Debridement and Intermediate closure of the resulting wound defect 4 cm CPT 1104 and CPT 14765 It became apparent that the surrounding skin and muscle was completely necrotic with a dark buchanan color. It did not bleed. I needed to resect this devital tissue, this was done with a 15 blade back to health skin and muscle. Once the wound margins were found to have heathy vital tissue and muscle it was noted the the resulting defect was at least 3 cm long with a 2 cm diameter. To allow for closure of the defect I needed to extend the incision in an elliptical fashion and undermine the surrounding skin tissue . Once this was done I was able to obtain primary closure of the wound defect. The area was irrigated with at least 200 ml of NS solution. With a 3-0 Vicryl suture the healthy muscle tissue was closed with a few strategical placed deep sutures. I now used a 4-0 Vicryl for the SubQ with aligned the skin. Finally a 5-0 Nylon skin suture was used. I nice anatomic soft tissue closure was obtained. To add stability to the wound a few 3-0 Nylon tension sutures in a horizontal mattress were placed. The suture line was cleaned and a pressure dressing was place. Lower # 18 simple removal [id number] This was a retained root of the decayed # 18. The tooth was removed with a 301 elevator, there was a large amount of granulation tissue on the apex and some pus drained upon removal of the retained root. Once the case was completed I inspected the sites to insure all bleeding was controlled. The patient was allowed to awake from the anesthesia. Once full awake the anesthesia tube was removed and the patient was taken to the recovery room with all vital sign stable. The patient tolerated the surgery very well. I will follow the patient in my office, Rx and instructions will be given upon discharge. I attest to the content of the Intraoperative Record and any orders documented therein. Any exceptions are noted below.
== END 2024-09-03 15:49 | disposition alcohol treatment (31) | DRG 580 ==
LOC: ED 20:09 → 3W 09-02 00:35